=== PATIENT | female | born 1965 | race Hispanic/Latino ===

== ENCOUNTER 2020-10-28 14:52 | Emergency (ER) | payer BC, OTHER ==
--- OUTSIDE RECORDS SUMMARY | 2020-10-28 14:55 | XMS REPORT | Continuity of Care Document ---
:1965 Author Organization [facility] t Address [address] [place] [address] Dr. [address] [place] [address] Care Team Providers Name Role Phone Unavailable Unavailable Unavailable Problems This patient has no known problems. Allergies, Adverse Reactions, Alerts This patient has no known allergies or adverse reactions. Medications This patient has no known medications. Procedures This patient has no known procedures. Encounters Start End Encounter Admission Attending Care Care Encounter Source Date/Time Date/Time Type Type Clinicians Facility Department ID 2020-10-28 2020-10-28 Emergency [facility] [id number] 13:17:00 14:09:00 [place] [id number] [place] [id number] [place] [id number] Results This patient has no known results.
[2020-10-28 16:24] LABS: Absolute Lymphocytes (CBC) 2.5 K/uL (0.7-4.9); Basophils % 1.2 % (0-1.3); Hematocrit 44.1 % (36.0-45.0); Lymphocytes % 35.9 % (15.3-44.8); MPV 8.9 fL (7.6-11.3); RBC Red Blood Cell Count 5.22 M/uL (3.86-4.86)
[2020-10-28] MEDS ORDERED: ONDANSETRON 4 MG/2 ML VIAL ONE (16:34)
[2020-10-28] MEDS ORDERED: MORPHINE 2 MG/ML SYR ONE (16:34)
[2020-10-28] MEDS ORDERED: NA CHLORIDE 0.9% 1,000 ML ONE (16:34)
[2020-10-28 16:40] LABS: ALT/SGPT 33 U/L (12-78); AST/SGOT 22 U/L (15-37); Albumin 4.4 g/dL (3.4-5.0); Alkaline Phosphatase 68 U/L (45-117); BUN Blood Urea Nitrogen 13 mg/dL (7-18); Bicarbonate 26 mmol/L (21-32); Bilirubin Direct 0.1 mg/dL (0-0.2); Bilirubin Total 0.5 mg/dL (0.2-1.0); Glucose Level 97 mg/dL (74-106); Lipase 83 U/L (73-393); Potassium 3.7 mmol/L (3.5-5.1); Protein, Total 8.1 g/dL (6.4-8.2); Sodium Level 139 mmol/L (136-145)
--- NOTE | 2020-10-28 17:58 | RAD REPORT ---
EXAM DESCRIPTION: CT - Abdomen Pelvis W Contrast - 10/28/2020 5:36 pm CLINICAL HISTORY: ABD PAINx6 months, abdominal bloating, mid back pain, prior hysterectomy COMPARISON: No comparisons TECHNIQUE: Biphasic, helical CT imaging of the abdomen and pelvis was performed following 100 ml non -ionic IV contrast. Oral contrast administered. All CT scans are performed using dose optimization technique as appropriate and may include automated exposure control or mA/KV adjustment according to patient size. FINDINGS: No suspicious findings in the lung bases. In the subcapsular dome segment IV there is a 4.5 centimeter thin-walled homogeneous fluid attenuatio n cyst. No septation or enhancing mural nodule. An additional 10 millimeter cyst is present anterior mid right lobe. No solid mass of the liver. Liver attenuation is borderline to mild fatty infiltrated . No portal vein abnormality. No solid mass lesion of the liver. No spleen or pancreatic abnormality. Gallbladder and biliary tree are also without suspicious finding. Symmetric renal function is seen with no hydronephrosis or suspicious renal mass. No pyelonephritis o r acute parenchymal process. No bladder abnormalities. No adrenal abnormalities. Uterus is absent. No mass or focal abnormality at the vaginal cuff. Ovaries are not clearly seen and may be atrophic or s urgically absent. No adnexal mass. No stomach or small bowel abnormality identified. Partially retrocecal appendix is normal. No acute c olon process seen. Patient has very minimal left-sided diverticulosis. No free air, free fluid or inflammatory stranding. No mass or bulky lymphadenopathy. Patient has a few small sub centimeter mesenteric lymph nodes. Very minimal right inguinal hernia is present with no acute component. No suspicious bony findings. IMPRESSION: No appendicitis or other emergent CT abdomen or pelvis finding. Nonacute findings detailed in the body of the report.
--- NOTE | 2020-10-28 18:10 | EDPHYS ---
Physician Documentation [facility] Name: Halley Castelan Age: 54 yrs Sex: Female : 1965 Arrival Date: 10/28/2020 Time: 14:58 Bed 5 Private MD: Suraj Solares HPI: 10/28 16:07 This 54 yrs old Female presents to ER via Ambulatory with complaints of Back adilene Pain, Sent By Glenna anthony. 16:07 The patient presents with pain that is acute. The symptoms are located in the right mid adilene back and right low back. Onset: The symptoms/episode began/occurred 2 day(s) ago. The pain radiates to the right mid back and right low back. Associated signs and symptoms: The patient has no apparent associated signs or symptoms. The problem was sustained from unknown cause. Modifying factors: The patient symptoms are alleviated by remaining still, the patient symptoms are aggravated by standing, walking. Severity of symptoms: At their worst the symptoms were mild, moderate, in the emergency department the symptoms are unchanged. The patient has not experienced similar symptoms in the past. 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 - Social history:: Smoking status: Patient denies any tobacco usage or history of. ROS: 16:11 Constitutional: Negative for fever, chills, and weight loss, Eyes: Negative for injury, adilene pain, redness, and discharge, ENT: Negative for injury, pain, and discharge, Neck: Negative for injury, pain, and swelling, Cardiovascular: Negative for chest pain, palpitations, and edema, Respiratory: Negative for shortness of breath, cough, wheezing, and pleuritic chest pain, Back: Negative for injury and pain, : Negative for injury, bleeding, discharge, and swelling, MS/Extremity: Negative for injury and deformity, Skin: Negative for injury, rash, and discoloration, Neuro: Negative for headache, weakness, numbness, tingling, and seizure, Psych: Negative for depression, anxiety, suicide ideation, homicidal ideation, and hallucinations, Allergy/Immunology: Negative for hives, rash, and allergies, Endocrine: Negative for neck swelling, polydipsia, polyuria, polyphagia, and marked weight changes, Hematologic/Lymphatic: Negative for swollen nodes, abnormal bleeding, and unusual bruising. 16:11 Abdomen/GI: Positive for abdominal pain, abdominal cramps, of the right lower quadrant. Exam: 16:11 Constitutional: This is a well developed, well nourished patient who is awake, alert, adilene and in no acute distress. Head/Face: Normocephalic, atraumatic. Eyes: Pupils equal round and reactive to light, extra-ocular motions intact. Lids and lashes normal. Conjunctiva and sclera are non-icteric and not injected. Cornea within normal limits. Periorbital areas with no swelling, redness, or edema. ENT: Nares patent. No nasal discharge, no septal abnormalities noted. Tympanic membranes are normal and external auditory canals are clear. Oropharynx with no redness, swelling, or masses, exudates, or evidence of obstruction, uvula midline. Mucous membranes moist. Neck: Trachea midline, no thyromegaly or masses palpated, and no cervical lymphadenopathy. Supple, full range of motion without nuchal rigidity, or vertebral point tenderness. No Meningismus. Chest/axilla: Normal chest wall appearance and motion. Nontender with no deformity. No lesions are appreciated. Cardiovascular: Regular rate and rhythm with a normal S1 and S2. No gallops, murmurs, or rubs. Normal PMI, no JVD. No pulse deficits. Respiratory: Lungs have equal breath sounds bilaterally, clear to auscultation and percussion. No rales, rhonchi or wheezes noted. No increased work of breathing, no retractions or nasal flaring. Back: No spinal tenderness. No costovertebral tenderness. Full range of motion. Skin: Warm, dry with normal turgor. Normal color with no rashes, no lesions, and no evidence of cellulitis. MS/ Extremity: Pulses equal, no cyanosis. Neurovascular intact. Full, normal range of motion. Neuro: Awake and alert, GCS 15, oriented to person, place, time, and situation. Cranial nerves II-XII grossly intact. Motor strength 5/5 in all extremities. Sensory grossly intact. Cerebellar exam normal. Normal gait. Psych: Awake, alert, with orientation to person, place and time. Behavior, mood, and affect are within normal limits. 16:11 Abdomen/GI: Inspection: distension, Bowel sounds: active, Palpation: mild abdominal tenderness, moderate abdominal tenderness, in the posterior aspect of right lateral abdomen, anterior aspect of right lateral abdomen and right lower quadrant, Liver: no appreciated palpable abnormalities, Hernia: not appreciated. Vital Signs: 15:01 BP 153 / 94; Pulse 85; Resp 16 S; Temp 97.5(TE); Pulse Ox 98% on R/A; Weight 67.13 kg ca1 (R); Height 5 ft. 1 in. (154.94 cm) (R); Pain 6/10; 16:30 BP 99 / 65; Pulse 86; Resp 18; Pulse Ox 99% on R/A; sv 17:29 BP 132 / 88; Pulse 87; Resp 15; Pulse Ox 99% ; hb 18:15 BP 130 / 82; Pulse 84; Resp 15; Pulse Ox 99% on R/A; hb 15:01 Body Mass Index 27.96 (67.13 kg, 154.94 cm) ca1 MDM: 15:47 Patient medically screened. adilene 16:12 Differential diagnosis: Pyelonephritis Renal Infarction Cholelithiasis, diverticulitis, adilene non-specific abd pain, pancreatitis, Pyelonephritis, Ureterolithiasis, urinary tract infection. Data reviewed: vital signs, nurses notes, lab test result(s), radiologic studies, CT scan, plain films. Data interpreted: teletypesetter monitor: rate is 85 beats/min, rhythm is regular, Pulse oximetry: on room air is 98 %. Counseling: I had a detailed discussion with the patient and/or guardian regarding: the historical points, exam findings, and any diagnostic results supporting the discharge/admit diagnosis, lab results, radiology results. 10/28 16:06 Order name: Basic Metabolic Panel; Complete Time: 16:43 [place] 10/28 16:06 Order name: CBC with Diff; Complete Time: 16:43 [place] 10/28 16:06 Order name: Hepatic Function; Complete Time: 16:43 [place] 10/28 16:06 Order name: Lipase; Complete Time: 16:43 [facility] 10/28 16:06 Order name: Urine Culture [facility] 10/28 17:07 Order name: Urine Dipstick--Ancillary (enter results) 10/28 16:06 Order name: IV Saline Lock; Complete Time: 16:20 [facility] 10/28 16:06 Order name: Labs collected and sent; Complete Time: 16:21 [facility] 10/28 16:06 Order name: Urine Dipstick-Ancillary (obtain specimen); Complete Time: 17:30 [facility] 10/28 16:06 Order name: CT Abd/Pelvis - PO and IV Contrast; Complete Time: 18:08 [facility] Administered Medications: 16:20 Drug: NS 0.9% 500 ml Route: IV; Rate: bolus; Site: left antecubital; sv 16:50 Follow up: Response: No adverse reaction; IV Status: Completed infusion; IV Intake: sv 500ml 16:48 Drug: NS 0.9% 1000 ml Route: IV; Rate: 125 ml/hr; Site: left antecubital; sv 18:00 Follow up: Response: No adverse reaction; IV Status: Order to discontinue infusion sv 17:30 Not Given (Patient Refused): morphine 2 mg IVP once; (PAIN>8) RASS on ADMN: Combtv4, sv Very Agttd3, Agttd2, Rstlss1, AlertClm0, Drwsy-1, LtSdtn-2, ModSdtn-3, DpSdtn-4, UnArsble-5 x2 17:30 Not Given (Patient Refused): Zofran (Ondansetron) 4 mg IVP once; over 2 minutes sv Disposition: 10/28/20 18:09 Discharged to Home. Impression: Abdominal tenderness. - Condition is Stable. - Discharge Instructions: Abdominal Pain, Adult, Abdominal Pain, Adult, [id number]. - Prescriptions for Bentyl 20 mg Oral Tablet - take 1 tablet by ORAL route every 6 hours As needed; 20 tablet. Pepcid 20 mg Oral Tablet - take 1 tablet by ORAL route every 12 hours for 10 days; 20 tablet. Zofran 4 mg Oral Tablet - take 1 tablet by ORAL route every 12 hours As needed; 20 tablet. - Medication Reconciliation Form, Thank You Letter, Antibiotic Education, Prescription Opioid Use form. - Follow up: Private Physician; When: 2 - 3 days; Reason: Recheck today's complaints, Continuance of care, Re-evaluation by your physician. Follow up: Prince Lopes MD; When: 2 - 3 days; Reason: Recheck today's complaints, Re-evaluation by your physician. - Problem is new. - Symptoms have improved. Signatures: Dispatcher [employer] Jaz Khan, RN RN Suraj Dillard MD MD cha Baxter, Heather, RN RN Acob, LUIS FERNANDO Johnson RN ca1 Corrections: (The following items were deleted from the chart) 18:28 18:09 10/28/2020 18:09 Discharged to Home. Impression: Abdominal tenderness. Condition hb is Stable. Forms are Medication Reconciliation Form, Thank You Letter, Antibiotic Education, Prescription Opioid Use. Follow up: Private Physician; When: 2 - 3 days; Reason: Recheck today's complaints, Continuance of care, Re-evaluation by your physician. Follow up: Prince Lopes; When: 2 - 3 days; Reason: Recheck today's complaints, Re-evaluation by your physician. Problem is new. Symptoms have improved. adilene
--- NOTE | 2020-10-28 18:10 | ER ---
Nurse's Notes [facility] Name: Halley Castelan Age: 54 yrs Sex: Female : 1965 Arrival Date: 10/28/2020 Time: 14:58 Bed 5 Private MD: Diagnosis: Abdominal tenderness Presentation: 10/28 15:01 Chief complaint: Patient states: Abdominal pain x 6 months. Yesterday, it feels swollen ca1 and bloated, also has mid back pain. Denies N/V/D. Coronavirus screen: Client denies travel out of the [place] in the last 14 days. At this time, the client does not indicate any symptoms associated with coronavirus-19. Ebola Screen: Patient negative for fever greater than or equal to 101.5 degrees Fahrenheit, and additional compatible Ebola Virus Disease symptoms Patient denies exposure to infectious person. Patient denies travel to an Ebola-affected area in the 21 days before illness onset. No symptoms or risks identified at this time. Initial Sepsis Screen: Does the patient meet any 2 criteria? No. Patient's initial sepsis screen is negative. Does the patient have a suspected source of infection? No. Patient's initial sepsis screen is negative. Risk Assessment: Do you want to hurt yourself or someone else? Patient reports no desire to harm self or others. Onset of symptoms was October 28, 2020. 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 - Social history:: Smoking status: Patient denies any tobacco usage or history of. Screenin:10 Abuse screen: Denies threats or abuse. Denies injuries from another. Nutritional sv screening: No deficits noted. Tuberculosis screening: No symptoms or risk factors identified. Fall Risk None identified. Assessment: 16:10 General: Appears in no apparent distress. uncomfortable, well groomed, well developed, sv well nourished, Behavior is calm, cooperative, appropriate for age. Pain: Complains of pain in suprapubic area, right upper quadrant and right lower quadrant Pain currently is 6 out of 10 on a pain scale. Quality of pain is described as pressure, Pain began months Is continuous. Neuro: Level of Consciousness is awake, alert, obeys commands, Oriented to person, place, time, situation, Moves all extremities. Full function Gait is steady, Speech is normal. Respiratory: Airway is patent Respiratory effort is even, unlabored, Respiratory pattern is regular, symmetrical. GI: Abdomen is distended, Stools are reported to be normal. Reports bloating. Derm: Skin is intact, Skin is pink, warm \T\ dry. Musculoskeletal: Range of motion: intact in all extremities. 17:00 Reassessment: Patient appears in no apparent distress at this time. Patient and/or hb family updated on plan of care and expected duration. Pain level reassessed. Patient is alert, oriented x 3, equal unlabored respirations, skin warm/dry/pink. 18:00 Reassessment: Patient appears in no apparent distress at this time. Patient and/or hb family updated on plan of care and expected duration. Pain level reassessed. Patient is alert, oriented x 3, equal unlabored respirations, skin warm/dry/pink. Vital Signs: 15:01 BP 153 / 94; Pulse 85; Resp 16 S; Temp 97.5(TE); Pulse Ox 98% on R/A; Weight 67.13 kg ca1 (R); Height 5 ft. 1 in. (154.94 cm) (R); Pain 6/10; 16:30 BP 99 / 65; Pulse 86; Resp 18; Pulse Ox 99% on R/A; sv 17:29 BP 132 / 88; Pulse 87; Resp 15; Pulse Ox 99% ; hb 18:15 BP 130 / 82; Pulse 84; Resp 15; Pulse Ox 99% on R/A; hb 15:01 Body Mass Index 27.96 (67.13 kg, 154.94 cm) ca1 ED Course: 14:58 Patient arrived in ED. ds1 15:07 Triage completed. ca1 15:08 Arm band placed on right wrist. ca1 15:47 Suraj Castelan MD is Attending Physician. adilene 16:01 Jaz Camacho RN is Primary Nurse. sv 16:10 Patient has correct armband on for positive identification. Bed in low position. Call sv light in reach. Pulse ox on. NIBP on. Door closed. Warm blanket given. Head of bed elevated. 16:10 Inserted saline lock: 20 gauge in left antecubital area, using aseptic technique. Blood sv collected. Flushed left antecubital with 5 ml normal saline. 17:35 CT Abd/Pelvis - PO and IV Contrast In Process Unspecified. EDMS 18:08 Prince Lopes MD is Referral Physician. adilene 18:28 No provider procedures requiring assistance completed. IV discontinued, intact, hb bleeding controlled, No redness/swelling at site. Administered Medications: 16:20 Drug: NS 0.9% 500 ml Route: IV; Rate: bolus; Site: left antecubital; sv 16:50 Follow up: Response: No adverse reaction; IV Status: Completed infusion; IV Intake: sv 500ml 16:48 Drug: NS 0.9% 1000 ml Route: IV; Rate: 125 ml/hr; Site: left antecubital; sv 18:00 Follow up: Response: No adverse reaction; IV Status: Order to discontinue infusion sv 17:30 Not Given (Patient Refused): morphine 2 mg IVP once; (PAIN>8) RASS on ADMN: Combtv4, sv Very Agttd3, Agttd2, Rstlss1, AlertClm0, Drwsy-1, LtSdtn-2, ModSdtn-3, DpSdtn-4, UnArsble-5 x2 17:30 Not Given (Patient Refused): Zofran (Ondansetron) 4 mg IVP once; over 2 minutes sv Intake: 16:21 PO: 500ml (Contrast); Total: 500ml. sv 16:50 IV: 500ml; Total: 1000ml. sv 16:21 Called and informed More in CT pt finished contrast. sv Outcome: 18:09 Discharge ordered by . adilene 18:28 Discharged to home ambulatory. hb 18:28 Condition: stable 18:28 Discharge instructions given to patient, Instructed on discharge instructions, follow up and referral plans. medication usage, Demonstrated understanding of instructions, follow-up care, medications, Prescriptions given X 3. 18:28 Patient left the ED. hb Signatures: Dispatcher [employer] ED[facility] Jaz Camacho RN RN sv Anderson, Corey, MD MD cha Sanford, Demi ds1 Gisele Villanueva, RN RN hb AcElizabeth kilgore, RN RN ca1
[2020-10-28 21:15] VITALS: TEMP 97.5
[2020-10-28 21:16] VITALS: O2SAT 99
[2020-10-28 21:28] VITALS: BP 130/82
[2020-11-04 12:41] LABS: Urine Blood Trace-lysed (Negative); Urine Glucose Negative (Negative); Urine Protein Negative (Negative)
== END 2020-10-28 18:28 | disposition home or self-care (01) ==
LOC: ER 14:52
DX: R10.813 Right lower quadrant abdominal tenderness (principal)
CPT/HCPCS: 87088; 85025; 87086; 80048; 36415; 80076; 81003; 83690; 74177; Q9967; J7030; 96360; 96361; 99284; J2270; J2405